=== PATIENT | male | born 1990 | race Hispanic/Latino ===

== ENCOUNTER 2018-08-12 09:53 | Emergency (ER) | payer SELFPAY ==
[2018-08-12] MEDS ORDERED: predniSONE 20 MG TAB ONE (10:04)
== END 2018-08-12 10:10 | disposition home or self-care (01) ==
LOC: BURERS 09:53
DX: L25.5 Unspecified contact dermatitis due to plants, except food (principal); F17.220 Nicotine dependence, chewing tobacco, uncomplicated
CPT/HCPCS: 99282; J7512